=== PATIENT | female | born 1960 | race Caucasian/White ===

== ENCOUNTER 2022-01-29 20:23 | Emergency (ER) | payer SELFPAY ==
[2022-01-29 20:33] VITALS: BP 186/94; PULSE 88; RESP 19; TEMP 37.3; O2SAT 95; BMI 40.3
--- NOTE | 2022-01-29 20:52 | XRR_ITS ---
PROCEDURE INFORMATION: Exam: XR Left Knee Exam date and time: 01/29/2022 9:00 PM Age: 61 years old Clinical indication: Pain and injury or trauma; Fall; Swelling (edema); Knee; Left; Additional info: Fall, pain TECHNIQUE: Imaging protocol: XR Left knee. Views: 3 views. COMPARISON: No relevant prior studies available. FINDINGS: Bones/joints: Osseous structures are intact. Negative for fracture. Joint spaces are preserved. Soft tissues: Normal. XR/XR knee LT 3V* [id number] IMPRESSION: No acute findings.
--- NOTE | 2022-01-29 21:24 | ED_ITS ---
HPI - Fall General: Chief Complaint: Fall Stated Complaint: pain all over from fall Time Seen by Provider: 01/29/22 20:42 History of Present Illness: Patient fell this afternoon tripping on a curb and striking concrete with her right arm left shoulder and left knee. Patient has full range of motion of all extremities. Has abrasion to the right [place]. Denies any other injury. Tetanus is up-to-date. Associated symptoms-after fall: Denies abdominal pain, chest pain or headache(s) Review of Systems Const: Denies: fever(s), chills or body aches Eyes: Denies: eye discomfort ENMT: Denies: throat pain Card: Denies: chest pain Resp: Denies: dyspnea GI: Denies: abdominal pain, nausea or vomiting Musc: Reports: extremity pain (Right arm including elbow and hand, left knee, left shoulder) Skin/Breast: Reports: other (Abrasion right [place]); Denies: rash Neuro: Denies: headache(s) Psych: Denies: depression or suicidal ideation Physical Exam Const: COMMON NORMALS: no acute distress, patient oriented x3 and alert HENMT: COMMON NORMALS: normocephalic and external ears normal HEAD & SCALP: normocephalic EXTERNAL EAR: Yes external ears normal Eye: COMMON NORMALS: EOMs intact bilaterally Neck/C-Spine: COMMON NORMALS: no JVD Resp: COMMON NORMALS: normal respiratory effort and No use of accessory muscles Cardio: COMMON NORMALS: no JVD GI: INSPECTION: Yes normal to inspection Extremity: COMMON NORMALS: normal to inspection and full ROM NARRATIVE EXTREMITY EXAM: No bruising or swelling to the right wrist or right elbow. Slight abrasion right elbow. Full range of motion. Left shoulder with tenderness on palpation to the upper aspect but no bruising or swelling he has full range of motion and very active with the left arm patient has severe tenderness to the left patella without bruising or swelling. Is able to ambulate and move the knee without difficulty. Neuro: COMMON NORMALS: patient oriented x3 SENSORIUM/ORIENTATION: Yes alert Psych: COMMON NORMALS: mental status grossly normal Skin: COMMON NORMALS: no rashes or lesions noted GENERAL SKIN EXAM: no rashes or lesions noted OTHER: Abrasion right lower extremity and right elbow. Course Vital Signs: Vital signs: Vital Signs Temperature 99.2 F 01/29/22 20:33 Pulse Rate 88 04/23/22 20:33 Respiratory Rate 19 H 01/29/22 20:33 Blood Pressure 186/94 01/29/22 20:33 Pulse Oximetry 95 01/29/22 20:33 MDM - Fall Medical Decision Making Clinical exam negative for any concerning findings. X-ray study of the left knee Did not reveal any fracture. Patient diagnosed contusion. Patient okay to take Tylenol and Toradol as per her liver transplantDr. Discharge Plan Discharge Patient Disposition: Home Clinical Impression: Fall, Contusion Condition: Stable Discharge Orders: Discharge ED (Routine); Ordered 01/29/22 Ordered By: Travis Ochoa Discharge Diet: Usual diet Discharge Activity: Increase activity as tolerated Patient Instructions: Contusion in Adults (ED) Activity Restrictions/Additional Instructions: Take Tylenol for discomfort. Apply ice as needed. Follow-up your primary care provider if no significant improvement noted. Coding Level of Care Code ED [employer] for Ghada Amos
[2022-01-29 21:28] VITALS: BP 145/81; PULSE 85; RESP 18; TEMP 37.3; O2SAT 96
[2022-01-29] MEDS: ketorolac 60 mg/2 mL INJ IM (21:28)
== END 2022-01-29 21:29 | disposition home or self-care (01) ==
PROVIDERS: Emergency Provider Nurse Practitioner Family
DX: S80.02XA Contusion of left knee, initial encounter (principal); S40.012A Contusion of left shoulder, initial encounter; S50.311A Abrasion of right elbow, initial encounter; W10.1XXA Fall (on)(from) sidewalk curb, initial encounter
CPT/HCPCS: 73562; 96372; 99283; J1885